=== PATIENT | male | born 1935 | race Caucasian/White ===

== ENCOUNTER → 2017-05-18 | Outpatient (CLI) | payer MEDICARE, BC ==
[2016-09-08 14:50] VITALS: BP 156/73
[~2017-05-18] MED LIST: AMLODIPINE10 MG PO; ASPIRIN E.C. 8181 MG PO; BYSTOLIC PO; CARDURA8 MG PO; COZAAR; COZAAR100 MG PO; DAILY MULTIPLE1 T18 PO; DOXAZOSIN MESYLA4 MG PO; FINASTERIDE5 M1 PO; FLEXERIL 1010 MG/TAB PO; HCTZ 25MG25 MG PO; OMEPRAZOLE D/R20 MG PO; RAPAFLO8 MG PO; SKELAXIN 800MG800 MG PO; ZANAFLEX4 M1 PO
== END ==
LOC: LAB 11:02
DX: K55.9 Vascular disorder of intestine, unspecified (principal)

== ENCOUNTER → 2017-05-23 | Outpatient (CLI) | payer MEDICARE, BC ==
[2016-09-08 14:50] VITALS: BP 156/73
== END ==
LOC: RAD 08:48
DX: K55.9 Vascular disorder of intestine, unspecified (principal); I73.9 Peripheral vascular disease, unspecified; N40.0 Benign prostatic hyperplasia without lower urinary tract symptoms
CPT/HCPCS: Q9967

== ENCOUNTER → 2017-07-25 | Outpatient (CLI) | payer MEDICARE, BC ==
[2016-09-08 14:50] VITALS: BP 156/73
[2017-07-26 08:33] LABS: BUN/CREATININE RATIO 14.9 (6.0-26.0); CALCIUM 9.5 mg/dL (8.4-10.2); HEMATOCRIT 38.4 % (42.0-52.0); HEMOGLOBIN 12.3 g/dL (13.5-18.0); MEAN PLATELET VOLUME 10.3 fl (7.4-10.4); POTASSIUM 3.9 mmol/L (3.6-5.0); RED BLOOD COUNT 3.73 M/mm3 (4.20-5.60); RED CELL DISTRIBUTION WIDTH 12.9 % (11.5-14.5); WHITE BLOOD COUNT 6.8 K/mm3 (4.8-10.8)
== END ==
LOC: LAB 10:40
PROVIDERS: Internal Medicine Interventional Cardiology
DX: I70.1 Atherosclerosis of renal artery (principal)

== ENCOUNTER 2017-11-10 12:24 | Emergency (ER) | payer MEDICARE, BC ==
[~2017-11-10] VITALS: Ht 182.9 cm; Wt 111.8 kg
[2017-11-10] MEDS ORDERED: LEVOXYL0.088 MG PO (12:42)
[2017-11-10] MEDS ORDERED: AMIODARONE200 MG PO (12:42)
[2017-11-10] MEDS ORDERED: MECLIZINE PO (12:43)
[2017-11-10 13:31] LABS: BUN/CREATININE RATIO 13.1 (6.0-26.0); HEMATOCRIT 37.1 % (42.0-52.0); HEMOGLOBIN 11.6 g/dL (13.5-18.0); MEAN CELL VOLUME 97 fl (78-100); MEAN CORPUSCULAR HEMOGLOBIN 30 pg (27-31); MEAN CORPUSCULAR HGB CONC 31 g/dL (33-37); MEAN PLATELET VOLUME 9.8 fl (7.4-10.4); PLATELET COUNT 239 K/mm3 (130-400); POTASSIUM 3.7 mmol/L (3.6-5.0); RED BLOOD COUNT 3.83 M/mm3 (4.20-5.60); RED CELL DISTRIBUTION WIDTH 13.8 % (11.5-14.5); WHITE BLOOD COUNT 12.4 K/mm3 (4.8-10.8)
[2017-11-10 13:41] LABS: LYMPHOCYTE 16 % (20-51); MONOCYTE 9 % (3-10); NEUTROPHILS 75 % (42-75)
[2017-11-10 14:02] LABS: PH-URINE 6.5 (5.0 - 8.0); URINE APPEARANCE CLEAR; URINE BILIRUBIN NEGATIVE (NEGATIVE); URINE BLOOD NEGATIVE (NEGATIVE); URINE COLOR YELLOW; URINE GLUCOSE NEGATIVE (NEGATIVE); URINE KETONE NEGATIVE (NEGATIVE); URINE NITRATE NEGATIVE (NEGATIVE); URINE PROTEIN(semi-quant) NEGATIVE (NEGATIVE); URINE UROBILINOGEN NORMAL (NORMAL)
[2017-11-10 14:03] LABS: URINE LEUKOCYTE ESTERASE TRACE (NEGATIVE); URINE WBC 0-1 /hpf (0-3)
[2017-11-10 14:30] VITALS: BP 178/90
== END 2017-11-10 14:30 | disposition home or self-care (01) ==
LOC: ED 12:24
PROVIDERS: Family Medicine
DX: R42 Dizziness and giddiness (principal); I25.10 Atherosclerotic heart disease of native coronary artery without angina pectoris; I73.9 Peripheral vascular disease, unspecified; I10 Essential (primary) hypertension; E78.5 Hyperlipidemia, unspecified; N40.1 Benign prostatic hyperplasia with lower urinary tract symptoms; N39.41 Urge incontinence; Z95.5 Presence of coronary angioplasty implant and graft

== ENCOUNTER → 2018-01-16 | Outpatient (CLI) | payer MEDICARE, BC ==
[~2018-01-16] MED LIST changes: +AMIODARONE200 MG PO; +LEVOXYL0.088 MG PO; +MECLIZINE PO
== END ==
LOC: RAD 09:00
DX: I65.23 Occlusion and stenosis of bilateral carotid arteries (principal)

== ENCOUNTER → 2018-02-20 | Outpatient (CLI) | payer MEDICARE, BC | LOC: RAD 12:45 | DX: K40.90 Unilateral inguinal hernia, without obstruction or gangrene, not specified as recurrent (principal) ==

== ENCOUNTER → 2018-05-24 | Outpatient (CLI) | payer MEDICARE, BC ==
[2018-05-24 11:01] LABS: POTASSIUM 3.7 mmol/L (3.6-5.0)
== END ==
LOC: LAB 09:49
PROVIDERS: Internal Medicine Interventional Cardiology
DX: R60.0 Localized edema (principal)

== ENCOUNTER 2018-08-05 11:42 | Inpatient (IN) | payer MEDICARE, BC ==
[~2018-08-05] VITALS: Ht 180.3 cm; Wt 111.9 kg
[~2018-08-05 11:42] MED LIST changes: +DILT-XR120 MG PO; +TRAMADOL 50 MG TAB PO; +XARELTO20 MG PO
[2018-08-05 15:47] VITALS: BP 135/82
[2018-08-05 18:51] VITALS: BP 118/77
--- NOTE | 2018-08-05 19:30 | NUR ---
Bedside shift report received from Kelsy CORNELIUS. Resting in bed. A/Ox 4. Denies pain at present time. Cast intact to LLE. CMS intact. Assessment completed. States has not had BM in 3 days. States he has a BM every 2 days or so. Does not feel constipated. Abdomen soft, ND. BS hypoactive. Gabrielle CONROYN in to see patient. Order received for Miralax.
--- NOTE | 2018-08-06 01:13 | NUR ---
Incontinent of urine. Total bed change. Having pain in neck area 05/03. Denies L Leg pain. Tramadol and flexiril given. Bed alarm on. Call light in reach.
--- NOTE | 2018-08-06 04:10 | NUR ---
Awakens, trying to crawl OOB. Needs to have BM. Assisted on bedpan. Confused. Male SPAGHETTI MACHINE OPERATOR in room to assist as patient emanuel not "want to poop in front of you girls".
[2018-08-06 06:27] VITALS: BP 142/97
--- NOTE | 2018-08-06 07:26 | NUR ---
Report to Angella CORNELIUS.
--- NOTE | 2018-08-06 07:56 | NUR ---
Pt suffering from slight confusion this AM. Is alert, oriented to self but asks several times where he is and where his is. Upon this RN entering room, pt noted to be lying in bed naked. Assist pt to sit on side of bed, apply brief. Instruct on NWB LLE, pt acknowledges understanding. Assist pt to stand with walker and pivot into recliner. Pt unable to follow instruction and uses toe touch during pivot. Placed gown. Pt complains of pain to R neck, agrees to try kpad. Denies pain to LLE. Toes warm, cap refill <3 seconds. Legs elevated on recliner footstool. Call light within reach, chair alarm set.
[2018-08-06 18:13] VITALS: BP 163/70
--- NOTE | 2018-08-06 21:30 | NUR ---
patient assisted into bed, miguelito cares performed, overnight pulse oximeter placed on patients left pointer finger and turned on, patient educated on what the study was, what it is for and what is being monitored, patient verbalizes understanding of instructions, agrees to keep monitor on his finger all night, call light within reach, side rails up x 2, bed alarm activated, patient denies any further needs at this time
[2018-08-07 06:03] VITALS: BP 177/103
[2018-08-07 18:57] VITALS: BP 115/80
[2018-08-08 06:20] VITALS: BP 148/89
--- NOTE | 2018-08-08 07:15 | NUR ---
bedside shift report given to Samantha at this time and care turned over. patient resting quietly in bed, call light within reach, bed alarm activated, side rails up x 2, patient denies any needs/complaints at this time
--- NOTE | 2018-08-08 07:40 | NUR ---
PATIENT SITTING UP IN CHAIR FOR BREAKFAST. SHIFT ASSESSMENT COMPLETED AT THIS TIME. PATIENT A/O X4. RATING PAIN 8/10 WITH A HEADACHE. LUNGS CTA, DENIES COUGH OR SHORTNESS OF BREATH. SPLINT TO LEFT LOWER LEG CDI, COLOR GOOD, CAP REFILL BRISK, AND PATIENT IS ABLE TO WIGGLE TOES. PATIENT WITHOUT FURTHER NEEDS, WILL CONTINUE TO MONITOR. CALL LIGHT WITHIN REACH AND CHAIR ALARM ON.
[2018-08-08 18:22] VITALS: BP 131/80
--- NOTE | 2018-08-08 19:04 | NUR ---
Bedside shift report received from Kelsy Gutierrez RN
--- NOTE | 2018-08-08 22:00 | NUR ---
Resting in bed, bed alarm set and call light with in reach of pt. Eyes closed and even respirations.
--- NOTE | 2018-08-09 05:51 | NUR ---
Awake and a/o x 3. C/o's of right sided neck pain. Rates pain 8 out 10. Given ultram 50mg 2 PO. Up to bedside commode with 2 person assist. None weight bearing left leg. Pivot transfer without difficulty.
[2018-08-09 06:23] VITALS: BP 160/97
--- NOTE | 2018-08-09 07:00 | NUR ---
Bedside shift report given to Angella Arzola RN
--- NOTE | 2018-08-09 09:29 | NUR ---
Pt A&O, sitting up in recliner, eating breakfast. Reports pain 3/10 to neck and LLE. Dressing to LLE intact.
--- NOTE | 2018-08-09 16:51 | NUR ---
Spoke to pt, his , and his son Clark about activities, pt states he has slowed down a lot and there are many things he no longer does, he merely likes to sit and look out the window and visit w/ family and friends or watch TV. He would like a visit from the [employer], who is called and notified and will be up this afternoon. Pt has a supportive family and all are in agreement w/ HH services when he is discharged and are given a choice list to research OPTICAL LABORATORY TECHNICIAN's.
[2018-08-09 18:10] VITALS: BP 118/74
--- NOTE | 2018-08-09 19:45 | NUR ---
Report received from Angella CORNELIUS. Patient up in recliner with legs elevated. A/O x4. Denies pain. LLE wrapped in linette wrap. CDI. CMS intact. Assessment completed. Chair alarm on. Call light in reach.
--- NOTE | 2018-08-10 00:39 | NUR ---
Rests with eyes closed. No signs of pain or distress. Bed alarm on. Call light in reach.
--- NOTE | 2018-08-10 05:59 | NUR ---
Awake for V/S and toileting. Up to BSC with max 2 assist. Incontinent of urine. Pericares provided. Back to bed, denies pain but states will take a pain pill anyway. Tramadol 50 MG and AM Synthroid given.
[2018-08-10 06:21] VITALS: BP 145/95
[2018-08-10 18:21] VITALS: BP 119/73
--- NOTE | 2018-08-10 20:10 | NUR ---
Report received from Saskia CORNELIUS. Up in recliner with legs elevated. A/O x4. Denies pain. Cast intact to LLE. Assessment completed. Takes Tramadol 1 tab for pain prevention. Ready to go to bed. BOX PRESS OPERATOR's in room to assist.
--- NOTE | 2018-08-10 20:28 | NUR ---
TITLE INSURANCE EXAMINER reports patient voiding small amounts and frequency. No burning or pain with urination. Incontinent at times. Family has stated to other nurses this is a long time issue. TITLE INSURANCE EXAMINER performed bladder scan and noted to have 660 ML in bladder. Last UA at [facility] on 08/03, showed no infection. Dr. Nunez notified.
--- NOTE | 2018-08-10 21:22 | NUR ---
New order received fro Clean catch UA and Flomax daily. THREAD SEPARATOR's notified of need for UA.
--- NOTE | 2018-08-11 05:51 | NUR ---
Awake in bed. Slept well. Scheducled AM medication taken. Clean catch UA obtained and taken to lab by DI.
[2018-08-11 06:11] VITALS: BP 141/89
--- NOTE | 2018-08-11 07:18 | NUR ---
Report to Saskia CORNELIUS.
--- NOTE | 2018-08-11 08:15 | NUR ---
Patient alert and oriented. Sitting up in the chair, naked, with gown covering lower half of his body. Patient is holding urinal in place. States "I have a problem." Patient voids small amounts of urine frequently. Points to urinal and states "I leave it here or I get all wet." Patient wants to keep urinal in place so he can catch the urine instead of urinating on himself constantly. Patient denies having this problem prior to admission. States "when I start over here I got worse, and worse, and worse." First dose of flomax administered and education provided. Patient denies bladder pain, or pain or burning with urination. UA was collected this morning. Patient denies needs or questions at this time. Fall precautions in place.
[2018-08-11 08:49] LABS: PH-URINE 7.5 (5.0 - 8.0); URINE APPEARANCE CLEAR; URINE BILIRUBIN NEGATIVE (NEGATIVE); URINE BLOOD NEGATIVE (NEGATIVE); URINE COLOR YELLOW; URINE GLUCOSE NEGATIVE (NEGATIVE); URINE KETONE NEGATIVE (NEGATIVE); URINE LEUKOCYTE ESTERASE NEGATIVE (NEGATIVE); URINE NITRATE NEGATIVE (NEGATIVE); URINE PROTEIN(semi-quant) NEGATIVE (NEGATIVE); URINE UROBILINOGEN NORMAL (NORMAL); URINE WBC 0-1 /hpf (0-3)
--- NOTE | 2018-08-11 08:50 | NUR ---
Dr. Nunez notified of patient's urinary complaints. New orders for bladder scan.
--- NOTE | 2018-08-11 16:20 | NUR ---
Patient resting in bed. Denies pain. Reports improvement in urinary symptoms. Splint and linette wrap to left lower extremity. CMS intact. Denies needs. Family at bedside. Fall precautions in place.
[2018-08-11 18:29] VITALS: BP 117/74
--- NOTE | 2018-08-12 03:09 | NUR ---
Resting quietly. No signs of pain or distress. Bed alarm on. Call light in reach.
--- NOTE | 2018-08-12 05:44 | NUR ---
Scheduled AM medication taken. Denies pain. Incontinent of B&B. Hayley/rectal cares given. Barrier cream applied to reddened/sore butt crack and right groin.
[2018-08-12 06:27] VITALS: BP 121/75
[2018-08-12 06:55] LABS: HEMATOCRIT 38.1 % (42.0-52.0); HEMOGLOBIN 11.9 g/dL (13.5-18.0); MEAN CELL VOLUME 95 fl (78-100); MEAN CORPUSCULAR HEMOGLOBIN 30 pg (27-31); MEAN CORPUSCULAR HGB CONC 31 g/dL (33-37); MEAN PLATELET VOLUME 9.3 fl (7.4-10.4); PLATELET COUNT 359 K/mm3 (130-400); RED BLOOD COUNT 4.01 M/mm3 (4.20-5.60); RED CELL DISTRIBUTION WIDTH 14.9 % (11.5-14.5); WHITE BLOOD COUNT 10.8 K/mm3 (4.8-10.8)
--- NOTE | 2018-08-12 07:03 | NUR ---
Report to Saskia CORNELIUS.
[2018-08-12 07:47] LABS: CALCIUM 9.6 mg/dL (8.4-10.2); POTASSIUM 4.2 mmol/L (3.6-5.0)
[2018-08-12 08:02] LABS: LYMPHOCYTE 17 % (20-51); MONOCYTE 12 % (3-10); NEUTROPHILS 66 % (42-75)
--- NOTE | 2018-08-12 12:05 | NUR ---
Danny Vargas APRN at bedside.
[2018-08-12 18:10] VITALS: BP 150/86
--- NOTE | 2018-08-12 19:10 | NUR ---
Report received from Saskia CORNELIUS. Patient rests supine in bed with CREW DISPATCHER in room providing cares. Transfered by CREW DISPATCHER from recliner to bed using slide board. CREW DISPATCHER reports that patient is doing "really good" with use of slide board. Currently denies pain to neck or LLE. Cast/Splint CDI to LLE. CMS intact. Assessment completed. R groin and butt crack red, no open areas. Barrier cream applied. Remains incontinent of bladder. Uses urinal and keeps placed in position.
--- NOTE | 2018-08-12 19:30 | NUR ---
Report received from Saskia CORNELIUS. Patient up sitting up in bed. Working on computer. A/O x4. Denies pain. Assessment completed. Voids clear yellow urine in urinal. Protein shake provided. Denies wants or needs.
--- NOTE | 2018-08-12 22:50 | NUR ---
Incontinent of urine. Total bed change. Hayley cares provided. Denies pain. States "I would take a Tylenol though". Tylenol 650 MG given. Repositioned for comfort. Bed alarm on. Call light in reach.
--- NOTE | 2018-08-13 04:30 | NUR ---
Restless and unable to sleep most of the night. Denies pain. Tylenol given PO for pain prevention. Sleep facilitation. Has had 2 soft formed BM's.
[2018-08-13 06:30] VITALS: BP 161/88
--- NOTE | 2018-08-13 06:30 | NUR ---
Complaining of a "sour tummy" this AM. Also noted to have some clear nasal drainage and a dry cough. Will report to oncoming shift. 7 up provided for stomach.
--- NOTE | 2018-08-13 07:13 | NUR ---
Report to Angella CORNELIUS.
--- NOTE | 2018-08-13 07:30 | NUR ---
During bedside shift report, there are noted to be a large pile of kleenex on pt bedside table. Upon inspection, they all have moderate amounts red/brown mucous in them. Pt reports that he has been coughing all NOC and has not slept well. Continues to c/o "a sour stomach." Has not had any food and only clear liquids through the NOC. Informed Danny Young APRN of findings, orders obtained.
[2018-08-13 08:03] LABS: HEMATOCRIT 35.9 % (42.0-52.0); HEMOGLOBIN 11.7 g/dL (13.5-18.0); MEAN CELL VOLUME 96 fl (78-100); MEAN CORPUSCULAR HEMOGLOBIN 31 pg (27-31); MEAN CORPUSCULAR HGB CONC 33 g/dL (33-37); MEAN PLATELET VOLUME 9.2 fl (7.4-10.4); PLATELET COUNT 351 K/mm3 (130-400); RED BLOOD COUNT 3.76 M/mm3 (4.20-5.60); RED CELL DISTRIBUTION WIDTH 14.9 % (11.5-14.5); WHITE BLOOD COUNT 11.8 K/mm3 (4.8-10.8)
[2018-08-13 08:04] LABS: GASTROCCULT POSITIVE
[2018-08-13 08:18] LABS: LYMPHOCYTE 6 % (20-51); MONOCYTE 8 % (3-10); NEUTROPHILS 85 % (42-75)
[2018-08-13 08:20] LABS: ALBUMIN 3.8 g/dL (3.5-5.0); CALCIUM 8.8 mg/dL (8.4-10.2); POTASSIUM 3.5 mmol/L (3.6-5.0); TOTAL PROTEIN 6.7 g/dL (6.3-8.2)
[2018-08-13 10:18] VITALS: BP 136/81
[2018-08-13 13:53] VITALS: BP 137/91
[2018-08-13 13:54] LABS: HEMATOCRIT 33.8 % (42.0-52.0); HEMOGLOBIN 10.8 g/dL (13.5-18.0)
[2018-08-13 14:10] VITALS: BP 137/91
--- NOTE | 2018-08-13 17:10 | NUR ---
Pt to procedure area via WC, for EGD.
--- NOTE | 2018-08-13 18:32 | NUR ---
EGD complete. Per Dr. Mcdonald, pt has reflux esophagitis. Instructs to continue PPI. May resume oral intake and anticoagulant without restriction.
--- NOTE | 2018-08-13 19:05 | NUR ---
Bedside shift report received from Angella Arzola RN. and son at side. Pt denies having chest pain, SOB or difficutly swallowing. Bed alarm set and call light with in reach of pt.
--- NOTE | 2018-08-13 19:06 | NUR ---
IV fluids of NS infusing at 125mls/hr. Protonix infusing via piggy back per pump at 25mls/hr.
[2018-08-13 19:47] VITALS: BP 102/66
[2018-08-13 20:13] LABS: HEMATOCRIT 33.9 % (42.0-52.0); HEMOGLOBIN 10.8 g/dL (13.5-18.0)
--- NOTE | 2018-08-13 20:20 | NUR ---
[id number], IV pump showing occlusion, IV site flushed with normal saline without difficulty, no redness or swelling. IV site none tender to touch. IV fluids and protonix IV infused via gravity. IV rescured. IV pump continued to show occlusion. 2009 New IV catheter started in right hand using a 22 gauge IV catheter. IV fluids of NS restarted and continue to infuse at 125mls/hr. Protonix IV restarted and infusing at 25ml/hr.
--- NOTE | 2018-08-13 22:25 | NUR ---
2214 Pt c/o of feeling wet. IV noted to be out of right hand. No active bleeding noted. Pt cleaned up and fresh bed sheets applied. Jo Young APRN notified. Order received not to restart IV. IV fluids DC, protonix IV DC 2221 Pt has been figety on and off this evening. Offered pt norco. Pt declined. Pt requested tylenol 650mg PO. Given at this time.
--- NOTE | 2018-08-14 05:38 | NUR ---
Q hourly checks done. Bed alarm set and call light with in reach of patient. Pt has been resting in bed with eyes closed and even respirations. Currently awake and a/o x 3. Pt c/o's of "just hurting all over." Offered norco for pain. Pt stated "I'll take it later."
[2018-08-14 06:24] LABS: HEMATOCRIT 33.8 % (42.0-52.0); HEMOGLOBIN 10.7 g/dL (13.5-18.0); MEAN CELL VOLUME 96 fl (78-100); MEAN CORPUSCULAR HEMOGLOBIN 30 pg (27-31); MEAN CORPUSCULAR HGB CONC 32 g/dL (33-37); MEAN PLATELET VOLUME 9.4 fl (7.4-10.4); PLATELET COUNT 333 K/mm3 (130-400); RED BLOOD COUNT 3.52 M/mm3 (4.20-5.60); RED CELL DISTRIBUTION WIDTH 15.4 % (11.5-14.5)
[2018-08-14 06:39] VITALS: BP 109/70
[2018-08-14 06:45] LABS: LYMPHOCYTE 17 % (20-51); MONOCYTE 15 % (3-10); NEUTROPHILS 67 % (42-75)
[2018-08-14 07:00] LABS: ALBUMIN 3.2 g/dL (3.5-5.0); CALCIUM 8.6 mg/dL (8.4-10.2); POTASSIUM 3.6 mmol/L (3.6-5.0); TOTAL BILIRUBIN 0.8 mg/dL (0.2-1.3)
--- NOTE | 2018-08-14 07:40 | NUR ---
REPORT RECEIVED FROM ADRYAN SPENCE
--- NOTE | 2018-08-14 07:40 | NUR ---
Bedside shift report given to Norma Jackman RN
--- NOTE | 2018-08-14 08:30 | NUR ---
PATIENT'S SHIFT ASSESSMENT COMPLETE. PATIENT ALERT AND ORIENTED X4. DENIES ANY PAIN OR DISCOMFORTS AT THIS TIME. SPLINT SECURED WITH BREN WRAP TO LEFT LOWER EXT. TOES TO LEFT LOWER EXT PINK WITH GOOD CAP REFILL AND SENSATION. DENIES SHORTNESS OF BREATH OR DIFFICULTIES BREATHING. REPORTS NO LONGER COUGHING UP BLOOD. DENIES ANY NEEDS FROM THE NURSE AT THIS TIME.CALL LIGHT WITHIN REACH. CHAIR ALARM ON.
[2018-08-14 09:20] VITALS: BP 118/70
--- NOTE | 2018-08-14 10:25 | NUR ---
THIS NURSE IN ROOM TO GIVE PATIENT XARELTO. PATIENT SWALLOWING PILLS WITH WATER. BEGINS COUGHING WHILE SWALLOWING PILLS. EYES WATERING. COUGHS FOR APPROXIMATELY 20- 30 SECONDS. IS ABLE TO CLEAR THROAT. STATES "ONE OF THE PILLS JUST WENT DOWN WRONG" BUT WAS ABLE TO CLEAR PILL. REPORTS THAT HE HASN'T BEEN HAVING ANY ISSUES WITH COUGHING OR CHOKING WITH MEALS OR WHILE TAKING PILLS STATES "SOMETIMES IT'S JUST SOMETHING THAT HAPPENS" DENIES ANY ISSUES WHILE EATING BREAKFAST DID NOT HAVE DIFFICULTIES WITH SWALLOWING SCHEDULED MORNING MEDICATIONS WHEN THIS NURSE WAS IN ROOM. PATIENT'S IN ROOM. CALL LIGHT WITHIN REACH. CHAIR ALARM ON.
[2018-08-14 18:05] VITALS: BP 132/85
--- NOTE | 2018-08-14 19:15 | NUR ---
report given to ras zapata
--- NOTE | 2018-08-14 19:50 | NUR ---
Resting in recliner, chair alarm set and call light with in reach of pt. Pt resting with eyes closed and even respirations. Opens eyes when spoken too. Denies having any pain at this time. Denies need for pain medication.
--- NOTE | 2018-08-14 19:57 | NUR ---
Denied having any neck pain or right lower posterior leg pain. Chair alarm set.
--- NOTE | 2018-08-14 21:45 | NUR ---
2143 C/o of right lower posterior leg pain. Rated pain 5-6 out 10. Request tylenol. 650mg of Tylenol given PO. Denied having any other needs. Offered snack, pt declined.
--- NOTE | 2018-08-15 05:52 | NUR ---
Q hourly checks done. Bed alarm set and call light with in reach of pt. Has been resting in bed with eyes closed. Opens eyes when spoken too. Denies having any needs, concerns or pain.
[2018-08-15 06:10] VITALS: BP 139/91
[2018-08-15 07:16] LABS: HEMATOCRIT 34.9 % (42.0-52.0); HEMOGLOBIN 10.8 g/dL (13.5-18.0); MEAN CELL VOLUME 96 fl (78-100); MEAN CORPUSCULAR HEMOGLOBIN 30 pg (27-31); MEAN CORPUSCULAR HGB CONC 31 g/dL (33-37); MEAN PLATELET VOLUME 9.5 fl (7.4-10.4); PLATELET COUNT 342 K/mm3 (130-400); RED BLOOD COUNT 3.63 M/mm3 (4.20-5.60); RED CELL DISTRIBUTION WIDTH 15.3 % (11.5-14.5); WHITE BLOOD COUNT 7.5 K/mm3 (4.8-10.8)
--- NOTE | 2018-08-15 07:33 | NUR ---
REPORT RECEIVED FROM ADRYAN SPENCE
[2018-08-15 07:43] LABS: LYMPHOCYTE 22 % (20-51); MONOCYTE 12 % (3-10); NEUTROPHILS 60 % (42-75)
[2018-08-15 19:18] VITALS: BP 105/56
--- NOTE | 2018-08-15 20:10 | NUR ---
Assessment complete. Patient resting in bed watching tv. Denies pain at this time. Bed in lowest position, bed alarm on and active. Personal belongings and call light within reach. Will cont to monitor
--- NOTE | 2018-08-16 00:22 | NUR ---
Patient sleeping in bed. No s/s of discomfort at this time. LLE cont to have cap refill of <3 seconds. Will cont to monitor.
--- NOTE | 2018-08-16 05:05 | NUR ---
Patient sleeping at this time. No s/s of discomfort noted. LLE cap refill remains <3 seconds. Bed in lowest position, bed alarm on and active. Call light and personal belongings remain within reach. Will cont to monitor.
[2018-08-16 06:46] VITALS: BP 138/92
--- NOTE | 2018-08-16 07:08 | NUR ---
PATIENT AWAKE AND TRYING TO USE URINAL DURING BEDSIDE REPORT. CHASSIS ENGINEER'S IN ROOM TO ASSIST. PATIENT SLEPT WELL LAST NIGHT WITH NEEDING INCONTINENT CHANGES A COUPLE OF TIMES. NO NEW ISSUES NOTED PER REPORT; PATIENT DENIES ANY QUESTIONS AT THIS TIME.
--- NOTE | 2018-08-16 12:30 | NUR ---
PATIENT IN ROOM WITH FAMILY SITTING IN RECLINER WITH LEGS ELEVATED. PATIENT REPORTS ACHING IN RIGHT CALF MUSCLE; BELIEVES ITS FROM BEING TOTAL WEIGHT BEARING ON THAT LEG. APPLIED BENGAY CREAM TO AREA AND RUBBED THE MUSCLE FOR A FEW MINUTES. NO NOTABLE REDNESS, SWELLING, OR BRUISING TO AREA.
[2018-08-16 18:04] VITALS: BP 92/60
--- NOTE | 2018-08-16 18:19 | NUR ---
PATIENT RESTING IN ROOM QUIETLY. FAMILY LEFT ABOUT A HALF HOUR AGO. PATIENT HAD A GOOD DAY WITH THERAPY AND TRANSFERRING TO THE VAN. PATIENT CONTINUES TO COMPLAIN ABOUT NEEDING OINTMENT ON HIS BUTT WITH NO IRRITATION NOTED. ENCOURAGED PATIENT TO SHIFT WEIGHT OR LAY IN BED EARLIER AND HE DENIES THAT IT IS FROM POSITION BUT RATHER IT IS DRY SKIN. WILL CONTINUE TO MONITOR SKIN FOR BREAKDOWN. PATIENT ACKNOWLEDGES HE IS GOING TO SEE ORTHO DOC NEXT TUES AND PLAN IS TO GET A BOOT. I EXPLAINED THE ORTHO BOOT AND SHOWED HIM AND FAMILY A PICTURE OF A COUPLE OF DIFFERENT BOOTS. PATIENT DENIES NEEDS AT THIS TIME. WATCHING TV
--- NOTE | 2018-08-16 20:43 | NUR ---
Bedside shift report received from Nae CORNELIUS. Rests supine in bed. A/O x4. Denies pain. Assisted to bed by DENITRATOR, 1 assist using slide board. Assessment completed. Reports occasional NPC. Splint/linette wrap CDI to LLE. Remains NWB to LLE. Denies wants or needs. Bed alarm on. Call light in reach.
--- NOTE | 2018-08-17 00:20 | NUR ---
Rings call light for assist with urinal. Denies pain. DOMESTIC VIOLENCE COUNSELOR in to assist. Bed alarm on. Call light in reach.
--- NOTE | 2018-08-17 02:24 | NUR ---
Resting quietly with eyes closed. No signs of pain or distress. Bed alarm on. Call light in reach.
[2018-08-17 06:23] VITALS: BP 151/95
--- NOTE | 2018-08-17 07:04 | NUR ---
Report to Angella CORNELIUS.
--- NOTE | 2018-08-17 08:30 | NUR ---
Pt sitting up in recliner. Denies pain. Is eating breakfast. Notice that pt does not yet have dentures in. They are retrieved from BR, pt applies adhesive and puts them in mouth. Pt c/o dry, cracked hands, requests lotion. Dressing to LLE remains intact, toes warm with brisk cap refill.
[2018-08-17 18:31] VITALS: BP 105/69
--- NOTE | 2018-08-17 20:15 | NUR ---
Report received from Angella CORNELIUS. Up in chair with legs elevated. Chair alarm on. A/O x4. Denies pain. Splint CDI to LLE. Remains NWB with slideboard transfer. Assessment completed.
[2018-08-18 06:20] VITALS: BP 139/99
--- NOTE | 2018-08-18 06:24 | NUR ---
Rested well all night. Voiding more in urinal. Less incontinence per CIRCULAR SAW OPERATOR report. Denied pain all shift.
--- NOTE | 2018-08-18 08:30 | NUR ---
Pt up to recliner eating breakfast, denies pain. Refuses miralax this AM. Pt transfers well using slideboard for NWB LLE. Pt reports being hopeful that at appt on Sunday, he will get cleared to begin weightbearing and states that he would really like to return to home. Discuss with pt that even once cleared for WB, he will still need add'l PT/OT to build up tolerance and strength. Pt is disappointed with this information.
[2018-08-18 18:41] VITALS: BP 89/61
--- NOTE | 2018-08-18 20:10 | NUR ---
Report received from Angella CORNELIUS. Patient resting supine in bed with eyes closed. No signs of pain or distress. Opens eyes when nurse enters room. Oriented x4. Denies pain. Assessment completed. Splint/Jose wrap CDI to LLE. Elevated on pillows. Denies wants or needs. Bed alarm on. Call light in reach.
--- NOTE | 2018-08-19 02:21 | NUR ---
Calls to have urinal emptied PRN. Denies pain. LLE elevated on pillows. Bed alarm on. Call light in reach.
[2018-08-19 06:22] VITALS: BP 133/94
--- NOTE | 2018-08-19 08:19 | NUR ---
Bedside shift report to Jessica RN.
--- NOTE | 2018-08-19 08:20 | NUR ---
PT RESTING IN BED DURING SHIFT REPORT. REPORTS A GOOD NIGHT. VOIDS CLEAR YELLOW URINE PER URINAL. DENIES NEEDS AT THIS TIME. ALARM ON AND CALL LIGHT IN REACH
[2018-08-19 09:09] LABS: EOS # 0.3 (0.04-0.40); EOS % 3.4 % (0.0-4.0); HEMATOCRIT 38.8 % (42.0-52.0); LYMPH# 1.4 (1.50-4.00); MEAN CELL VOLUME 97 fl (78-100); MEAN CORPUSCULAR HEMOGLOBIN 30 pg (27-31); MEAN CORPUSCULAR HGB CONC 31 g/dL (33-37); MEAN PLATELET VOLUME 9.2 fl (7.4-10.4); MONO # 0.8 (0.20-0.80); NEU # 5.2 (1.40-6.50); PLATELET COUNT 360 K/mm3 (130-400); RED BLOOD COUNT 4.02 M/mm3 (4.20-5.60); RED CELL DISTRIBUTION WIDTH 15.3 % (11.5-14.5); WHITE BLOOD COUNT 7.7 K/mm3 (4.8-10.8)
[2018-08-19 09:29] LABS: ALBUMIN 3.6 g/dL (3.5-5.0); CALCIUM 8.9 mg/dL (8.4-10.2); POTASSIUM 3.7 mmol/L (3.6-5.0); TOTAL BILIRUBIN 0.9 mg/dL (0.2-1.3); TOTAL PROTEIN 6.4 g/dL (6.3-8.2)
--- NOTE | 2018-08-19 10:45 | NUR ---
Sree MYERS NOTIFIED OF PATIENTS COMPLAINTS OF BEING DIZZY
--- NOTE | 2018-08-19 12:00 | NUR ---
PT UP IN CHAIR DOING WELL. DENIES PAIN. FAMILY AT BEDSIDE
[2018-08-19 18:09] VITALS: BP 84/61; BP 89/64
--- NOTE | 2018-08-19 20:39 | NUR ---
Report received from Saskia CORNELIUS. Patient up in W/C. A/O x4. Denies pain. Refuses need for topical analgesic. Assessment completed. Dressing splint CDI to LLE. URBAN DESIGN CONSULTANT's in room to assist with HS cares and transfer to bed.
[2018-08-20 06:35] VITALS: BP 140/87
--- NOTE | 2018-08-20 07:20 | NUR ---
BEDSIDE REPORT RECEIVED FROM KARLA MCGARRY LPN
--- NOTE | 2018-08-20 07:23 | NUR ---
Report to Norma CORNELIUS.
--- NOTE | 2018-08-20 08:30 | NUR ---
PATIENT SITTING UP IN RECLINER. SHIFT ASSESSMENT COMPLETE. PATIENT ALERT AND ORIENTED. DENIES ANY PAIN OR DISCOMFORTS AT THIS TIME. DENIES SHORTNESS OF BREATH OR DIFFICULTIES BREATHING. SPLINT IN PLACE TO LEFT LOWER EXT. AREA THAT IS ABLE TO BE ASSESSED AROUND SPLINT CMS INTACT. PATIENT REMAINS NON WEIGHT BEARING TO LEFT LOWER EXT WITH SLIDE BOARD TRANSFERS ONLY. DENIES ANY NEEDS FROM THE NURSE AT THIS TIME.
--- NOTE | 2018-08-20 09:00 | NUR ---
Sree MYRES APRN REPORTS SHE HAS A PHONE CALL INTO 'S OFFICE TO SEE IF PATIENT CAN BE SEEN AT [facility] BY ON AUGUST 28 AND CANCEL APPT TODAY IN [place]. ALSO ASKED IF Sree MYERS APRN CAN REMOVE SPLINT AND TAKE OUT SHON. AWAITING REPLY.
--- NOTE | 2018-08-20 11:10 | NUR ---
CALLED [facility] OFFICE TO FOLLOW UP ON MESSAGE PROVIDER LEFT YESTERDAY. SPOKE WITH 'S NURSE. PER NURSE PATIENT'S APPT THIS AFTERNOON CANCELED. OKAY WITH PATIENT CARE BEING TRANSFERED TO . PATIENT HAS APPOINTMENT ON AUGUST 28 AT 1010 AT [facility]. NURSE REPORTS SHON NEED TO COME OUT TODAY,REPORTED SHE IS STILL AWAITING REPLY FROM ON ORDERS FOR Sree MYERS APRN TO REMOVE SPLINT TODAY AND TAKE OUT SUTURES. THIS NURSE REQUESTED ORDERS BE CALLED TO US WHEN AVAILABLE AND COPY OF WRITTEN ORDER OF INSTRUCTIONS BE FAXED TO [phone]. NURSE REPORTS NEED FOR FOLLOW UP XRAY WILL ALSO BE ADDRESSED IN ORDERS.
--- NOTE | 2018-08-20 15:05 | NUR ---
Sree MYERS APRN WITH PATIENT'S ROOM REMOVING SPLINT FROM LEFT LOWER EXT. SPLINT REMOVED. PATIENT HAS INCISION TO LEFT LATERAL ANKLE. SHON IN PLACE. INCISION EDGES WELL APPROXIMATED. SMALL AMOUNT OF DRIED SANGUINEOUS DRAINAGE PRESENT ON OLD DRESSING. SOME DARK PURPLE BRUISING THROUGHOUT LEFT ANKLE NOTED MOSTLY AROUND LOWER BORDER OF INCISION AND BASE OF FOOT. NO REDNESS OR SIGNS OF INFECTION NOTED AT THIS TIME. SHON REMOVED BY Sree MYERS APRN AT THIS TIME. 21 SHON REMOVED. INCISION EDGES WELL APPROXIMATED. SCANT AMOUNT OF SEROUS DRAINAGE COMING FROM INCISION AFTER SHON REMOVED. CLEANSED INCISION WITH CHLORAPREP. SKIN PREP APPLIED TO SURROUNDING SKIN. COVERED WITH AIRSTRIP. PHYSICAL THERAPY IN ROOM GETTING CAM BOOT FOR PATIENT. PER Sree MYERS APRN PATIENT IS TO WEAR CAM BOOT AT ALL TIMES. MAY REMOVE BOOT FOR SHOWER BUT ONLY IF PATIENT IS UNDER CLOSE SUPERVISION AND MAKE SURE PATIENT HAS LEG ELEVATED WITH WEIGHT OFF LEG AND DOES NOT PUT ANY WEIGHT ON LEFT LOWER EXT WHAT SO EVER.
[2018-08-20 19:13] VITALS: BP 82/72
--- NOTE | 2018-08-20 19:44 | NUR ---
BEDSIDE REPORT GIVEN TO ADRYAN ZHANG
[2018-08-21 06:06] VITALS: BP 124/89
--- NOTE | 2018-08-21 06:27 | NUR ---
Pt here with a left ankle fracture and for PT. Pt is coppertive with cares. Pt is incontient of urine x 2 this shift. Pt denies pain when asked. Cam Boot worn on left leg all night.
--- NOTE | 2018-08-21 07:20 | NUR ---
BEDSIDE REPORT RECEIVED FROM ADRYAN ZHANG
[2018-08-21 18:47] VITALS: BP 87/62
--- NOTE | 2018-08-21 20:11 | NUR ---
PATIENT'S DRESSING TO LEFT ANKLE CHANGED AT THIS TIME. OLD DRESSING HAS SMALL AMOUT OF SEROUS DRAINAGE PRESENT ON DRESSING. INCISION EDGES WELL APRPOXIMATED. DARK PUPRLE BRUISING THROUGHT FOOT. +1 EDEMA TO AREA. PATIENT REPORTS THAT "LEG HAS BEEN MORE SORE SINCE SWITHING TO BOOT" INICISION CLEANSED WITH STERILE SALINE. SKIN PREP APPLIED AND COVERED WITH AIR STRIP. PROTRUDING BONE TO MEDIAL ASPECT OF LEFT FOOT SLIGHTLY REDDENED. BLANCHABLE AND INTACT. THIN MEPILEX FOAM LITE APPLIED TO RED AREA FOR PROTECTION. PATIENT HAS APPROXIMATELY 0.5 CM AROUND BROWN SCAB TO LEFT CALF. MEPILEX FOAM APPLIED TO AREA. CAM BOOT REAPPLIED. PATIENT'S LEFT LOWER EXT ELEVATED ON PILLOWS. FAMILY IN ROOM. CALL LIGHT WITHIN REACH. BED ALARM ON.
[2018-08-22 06:09] VITALS: BP 142/88
--- NOTE | 2018-08-22 08:30 | NUR ---
Pt up to recliner. Denies pain. Had hair cut this AM by local beautician. Removed CAM walker, removed and applied new airstrip dressing cut to size and placed on lateral side of ankle. Incision noted to be healing, no open areas, no drainage. Pt denies boot is rubbing or hurting. Mepilex to scab on medial gutierrez and padding to medial ankle bone remain intact. Pedal pulses palpable and cap refill <3 seconds. Replace CAM walker to LLE.
[2018-08-22 18:34] VITALS: BP 102/67
--- NOTE | 2018-08-23 05:18 | NUR ---
Has been resting well all night with CAM boot in place. Remains NWB to LLE. Has Tylenol at HS per his request for pain prevention. Has denied actual pain this shift. Rests in bed with bed alarm on. Call light in reach.
[2018-08-23 06:30] VITALS: BP 145/95
--- NOTE | 2018-08-23 07:08 | NUR ---
Report to Angella CORNELIUS.
[2018-08-23 18:48] VITALS: BP 91/60
--- NOTE | 2018-08-23 19:30 | NUR ---
Bedside shift report received from Angella Arzola RN. Resting in recliner awake and a/o. Denies having any pain, needs or concerns.
--- NOTE | 2018-08-23 22:00 | NUR ---
Transfered from recliner to bed using slide board. Pt able to assist with pulling himself up in bed. Hayley care and coccyx care given. Continues to deny having any pain or needs. Cam boot on. Left lower leg elevated on pillow. Bed alarm set and call light with in reach of pt.
--- NOTE | 2018-08-24 06:06 | NUR ---
Q hourly checks done. Pt has been resting in bed with eyes closed and even respirations. Pt has been incontinent of urine x 2. Opens eyes when spoken too. Continues to deny pain.
[2018-08-24 06:29] VITALS: BP 147/93
--- NOTE | 2018-08-24 07:10 | NUR ---
Bedside shift report given to Lisa Royal RN
[2018-08-24 18:51] VITALS: BP 101/66
--- NOTE | 2018-08-24 19:40 | NUR ---
Report given to ADRYAN Mendoza. Patient sleeping in chair. No changes with cares today.
--- NOTE | 2018-08-24 22:00 | NUR ---
Cam boot loosened, pt wiggled toes without difficulty. Perpherial pulse present. Denies pain. Dressing to left out ankle CDI. Cam boot re-secured. Pt incontinent of stool. Hayley care and coccyx care given. Bed alarm set and call light with in reach of pt.
[2018-08-25 06:36] VITALS: BP 161/100
--- NOTE | 2018-08-25 07:20 | NUR ---
Bedside shift report given to Jolene Sandoval RN
[2018-08-25 18:00] VITALS: BP 98/67
--- NOTE | 2018-08-25 18:49 | NUR ---
Pt here for rehab after lt ankle fracture. Pt is able to make needs known to staff. Calls for help when needed. Pt non weight bearing on left leg. Family in through out the day. Pain medication given for right lower leg pain at 0950.
--- NOTE | 2018-08-25 19:15 | NUR ---
Bedside shift report received from Jolene Sandoval RN. Pt resting recliner awake and a/o. Denies having any pain or needs. Cam boot on left lower leg and foot.
--- NOTE | 2018-08-25 22:00 | NUR ---
Resting in bed, bed alarm set and call light with in reach of pt. Opens eyes when spoken too. Denies having any pain or needs. Used urinal at bed side. Voided 175mls of dark color urine. Cam Boot loosen for approx 5 minutes. Then resecure. Dressing on left lateral ankle CDI.
--- NOTE | 2018-08-26 04:15 | NUR ---
Used urinal at bedside. Awake and a/o x 3. Denies having any pain. Bed alarm set and call light with in reach of pt. Q hourly checks done.
[2018-08-26 06:04] VITALS: BP 153/91
--- NOTE | 2018-08-26 07:10 | NUR ---
Bedside shift report given to Angella Arzola RN
[2018-08-26 18:23] VITALS: BP 94/60
--- NOTE | 2018-08-26 20:35 | NUR ---
Bedside shift report received from Angella CORNELIUS. Up in chair with legs elevated. CAM boot in place to LLE. Remains NWB to LLE with use of slide board for transfers. A/O x2 self and place. Unsure of date, year. Oriented to situation. Denies pain. Assessment completed. States he is "cold". His butt hurts and he is ready for bed. BUSINESS PRACTICES OFFICER's notified. Chair alarm on. Call light in reach.
[2018-08-27 06:32] VITALS: BP 134/86
--- NOTE | 2018-08-27 07:39 | NUR ---
Report to Saskia CORNELIUS.
[2018-08-27 19:00] VITALS: BP 108/67
--- NOTE | 2018-08-27 21:50 | NUR ---
Report received from Saskia CORNELIUS. Patient rests in bed with eyes closed. Bed alarm on. Call light in reach. Awakens easily to verbal stimuli for assessment and HS medication. Oriented to self, and place. Denies pain. CAM boot in place to LLE. Opened for incision inspection. Airstrip dressing CDI. Boot refastened. Assessment completed. Educated on new medication Aricept. Takes whole without difficulty. Denies wants or needs. Using urinal and call for staff to empty PRN.
--- NOTE | 2018-08-28 01:07 | NUR ---
Rests with eyes closed. No signs of pain or distress. Bed alarm on. Call light in reach.
--- NOTE | 2018-08-28 04:10 | NUR ---
Rests with eyes closed. CAM boot in place to LLE. No signs of pain or distress. Using urinal in bed.
[2018-08-28 06:31] VITALS: BP 156/89
--- NOTE | 2018-08-28 07:02 | NUR ---
Report to Saskia CORNELIUS.
--- NOTE | 2018-08-28 10:05 | NUR ---
Patient taken to outpatient clinic via wheelchair by family for follow up appointment with Dr. Lui. CAM boot to left lower extremity. CMS intact.
[2018-08-28 18:19] VITALS: BP 113/57
--- NOTE | 2018-08-28 19:00 | NUR ---
BEDSIDE SHIFT REPORT RECIEVED FROM ADRYAN MILLER. PATIENT SITTING UP IN CHAIR, CALL LIGHT WITHIN REACH AND CHAIR ALARM ON.
--- NOTE | 2018-08-28 21:34 | NUR ---
PATIENT RESTING IN BED. SHIFT ASSESSMENT COMPLETED AT THIS TIME. PATIENT A/O X4, DENIES PAIN. LUNGS CTA, DENIES COUGH OR SHORTNESS OF BREATH. +2 BLE PITTING EDEMA NOTED. CAM BOOT CDI TO LLE. MEPILEX TO SALAS CDI. HS MEDICATION GIVEN. PATIENT WITHOUT FURTHER NEEDS, WILL CONTINUE TO MONITOR. CALL LIGHT WITHIN REACH AND BED ALARM ON.
[2018-08-29 06:29] VITALS: BP 164/95
[2018-08-29 18:00] VITALS: BP 89/60
--- NOTE | 2018-08-29 18:54 | NUR ---
[facility] and pt and family would like to choose [facility] for care after discharge. Paperwork is sent w/ [facility] litigation claim representative as pt is accepted for care.
--- NOTE | 2018-08-29 19:11 | NUR ---
REPORT RECEIVED FROM ADRYAN MILLER. PATIENT ASLEEP IN RECLINER DURING REPORT. NO NEW ORDERS RECEIVED POST SURGICAL FOLLOW UP. WILL CONTINUE TO USE SLIDE BOARD AND NON-WEIGHT BEARING AND WEAR THE CAM BOOT.
--- NOTE | 2018-08-30 00:53 | NUR ---
Patient sleeping in bed with TV on. All alarms on and bed in lowest position with call light within reach.
--- NOTE | 2018-08-30 03:48 | NUR ---
Patient asleep in bed with HOB slightly elevated and all lights are off. Bed in lowest position.
[2018-08-30 06:28] VITALS: BP 155/91
--- NOTE | 2018-08-30 07:00 | NUR ---
REPORT RECEIVED FROM PATY CORNELIUS.
--- NOTE | 2018-08-30 07:27 | NUR ---
SUPINE IN BED WITH EYES CLOSED. AWAKENS EASILY TO VOICE. PLEASANT. COMPLIMENTARY. DENIES PAIN AT PRESENT. CAM BOOT IN PLACE TO LT FOOT. ORIENTED X4. AGREES TO SHOWER TODAY. CALL LIGHT IN REACH.
[2018-08-30 18:43] VITALS: BP 103/73
[2018-08-31 05:50] VITALS: BP 141/90
--- NOTE | 2018-08-31 06:55 | NUR ---
PT HERE FOR THERAPYS AFTER FX OF LEFT ANKLE. PT SLEEP ALL NIGHT WAKES WHEN HE IS TURNED. INCONTINET OF URINE. PT IS ABLE TO MAKE NEEDS KNOWN TO STAFF. PT NON WEIGHT BEARING ON LEFT LEG FOR THE NEXT 2 WEEKS. CONTINUE TO MONIOTR PT.
--- NOTE | 2018-08-31 07:10 | NUR ---
REPORT RECEIVED FROM ADRYAN ZHANG. PATIENT RESTING IN BED QUIETLY. GIVEN 0700 MEDS
--- NOTE | 2018-08-31 09:30 | NUR ---
PT FOUND SITTING UP IN CHAIR. TAKES SCHEDULED MEDS WITHOUT DIFFICULTY. CAM BOOT ON AT THIS TIME. DENIES ANY PAIN, FAMILY ARRIVES TO VISIT. CALL LIGHT IN REACH NO OTHER NEEDS NOTED.
[2018-08-31 18:46] VITALS: BP 108/67
--- NOTE | 2018-08-31 19:00 | NUR ---
BEDSIDE SHIFT REPORT RECIEVED FROM ADRYAN ELI. PATIENT SITTING UP IN CHAIR WATCHING TV, CALL LIGHT WITHIN REACH AND CHAIR ALARM ON.
--- NOTE | 2018-08-31 21:45 | NUR ---
PATIENT SITTING UP IN CHAIR WATCHING TV. SHIFT ASSESSMENT COMPLETED AT THIS TIME. PATIENT A/O X4, DENIES PAIN, BUT WOULD LIKE PRN TYLENOL TO "HELP SLEEP." LUNGS CTA, DENIES COUGH OR SHORTNESS OF BREATH. +1 PITTING EDEMA NOTED TO BLE. CAM BOOT CDI TO LLE WITH 1/2 AIRSTRIP AND MEPILEX CDI. PATIENT REMAINS NON WEIGHT BEARING TO LLE. HS MEDICATION GIVEN. PATIENT WITHOUT FURTHER NEEDS, WILL CONTINUE TO MONITOR. CALL LIGHT WITHIN REACH AND CHAIR ALARM ON.
--- NOTE | 2018-09-01 05:36 | NUR ---
Pt her for fall resulting in a left ankle fracture. Pt is able to make needs known. Pt was assisted to chair at begining of shift and moved self around in hallways. Pt pleasent and coppertive. PT offers no complaints of pain . Pt rest in bed through ouththe night, calls for assistance when needed. Continue to monitor.
[2018-09-01 06:33] VITALS: BP 151/98
--- NOTE | 2018-09-01 07:13 | NUR ---
BEDSIDE REPORT GIVEN TO Danny FULLER RN
--- NOTE | 2018-09-01 07:47 | NUR ---
AWAKE IN BED. CAM BOOT IN PLACE TO LLE. HE REPORTS DISCOMFORT TO HIS LT FOOT, WHICH HE CALLS HIS "HEAVY FOOT." RATES 8/10 AND FEELS TIGHT. CAM BOOT REMOVED AND ROM EXERCISES PERFORMED. ANALGESIC BALM APPLIED TO LE AND FOOT. MEPILEX TO LT SALAS REPLACED; IT IS COVERING A SCAB. INCISION TO LT FOOT OPEN TO AIR AND APPEARS WELL HEALED. PEDAL PULSES PALPABLE.
--- NOTE | 2018-09-01 08:40 | NUR ---
SITTING IN CHAIR FOR BREAKFAST. PAIN TO FOOT BETTER BY REPORT BUT STILL RATES 8/10.
[2018-09-01 18:51] VITALS: BP 121/74
--- NOTE | 2018-09-01 19:14 | NUR ---
REPORT PROVIDED TO ESVIN CORNELIUS.
--- NOTE | 2018-09-01 19:25 | NUR ---
Report received from Breana Ferreira RN
--- NOTE | 2018-09-01 19:51 | NUR ---
Resting sitting up in recliner, awake and a/o x 3. States he has mild pain. Rated pain 7 out 10. Reviewed pain scale with pt. Rated pain 3 out 10. Continues to wear cam boot. Chair alarm set and call light with in reach of pt. Pt given tylenol 650mg PO for pain per pt request.
--- NOTE | 2018-09-01 21:05 | NUR ---
Report given to Fatemeh Anguiano RN
--- NOTE | 2018-09-01 21:08 | NUR ---
PATIENT CONSUMES NIGHT MEDS WITH NO OBVIOUS DIFFICULTY. PATIENT IS RESTING QUIETLY IN BED. PATIENT DOES NOT APPEAR TO BE IN ANY OBVIOUS DISTRESS AT THIS TIME. PATIENT HAS NO COMPLAINTS. PATIENT'S POSITION CHANGED IN BED IF HE HAS NOT DONE SO INDEPENDENTLY IN TWO HOURS. HOB ELEVATED FOR COMFORT. BED RAILS UP X2. BED ALARM ARMED AT ALL TIMES. CALL LIGHT WITHIN REACH. CLOSE MONITORING AND HOURLY ROUNDING CONTINUE.
--- NOTE | 2018-09-02 01:44 | NUR ---
PATIENT CONTINUES TO REST QUIETLY IN BED. PATIENT CHANGES POSITION IN BED INDEPENDENTLY THROUGHOUT THE NIGHT. PATIENT DOES NOT APPEAR TO BE IN ANY OBVIOUS DISTRESS AT THIS TIME. HOB ELEVATED FOR COMFORT. BED RAILS UP X2. BED ALARM ARMED AT ALL TIMES. CALL LIGHT WITHIN REACH. CLOSE MONITORING AND HOURLY ROUNDING CONTINUE.
[2018-09-02 06:24] VITALS: BP 151/93
--- NOTE | 2018-09-02 06:50 | NUR ---
REPORT GIVEN TO ASHLEY Calles RN.
[2018-09-02 18:31] VITALS: BP 112/69
[2018-09-03 06:13] VITALS: BP 154/84
--- NOTE | 2018-09-03 07:00 | NUR ---
REPORT RECEIVED FROM NIRMALA CORNELIUS.
--- NOTE | 2018-09-03 07:15 | NUR ---
REPORT GIVEN TO MILADY-ADRYAN AND CARE TURNED OVER AT THIS TIME, PATIENT RESTING QUIETLY IN BED, DENIES ANY NEEDS/COMPLAINTS AT THIS TIME
--- NOTE | 2018-09-03 11:47 | NUR ---
IN HALLWAY WITH ; SHE PROPELS HIM IN W/C.
[2018-09-03 18:29] VITALS: BP 107/69
--- NOTE | 2018-09-03 19:40 | NUR ---
Report received from Breana CORNELIUS. Up in recliner with bilateral lower ext. elevated. CAM boot in place to LLE. A/O to self, , place. Did not know current Month or Year. Denies pain. Assessment completed. Scheduled HS medications taken whole without difficulty. Denies wants or needs. Chair alarm on. Call light in reach.
--- NOTE | 2018-09-03 19:47 | NUR ---
REPORT PROVIDED TO KARLA HUNT.
[2018-09-04 06:27] VITALS: BP 145/93
--- NOTE | 2018-09-04 07:08 | NUR ---
Report to Saskia CORNELIUS.
[2018-09-04 18:36] VITALS: BP 130/79
[2018-09-05 06:23] VITALS: BP 148/89
--- NOTE | 2018-09-05 06:40 | NUR ---
Pt here swing bed due to fracture of left ankle and strengthing. Pt is able to make needs known to staff. PT call whenasistance is needed. Tylenol was given proopir to HS. Pt uses urinal per self but is also incontinent of urine at times. Pt reports not sleeping well last night.
--- NOTE | 2018-09-05 16:30 | NUR ---
PT IN BED RESTING AND TALKING WITH FAMILY, SMILING AFFECT, DENIES PAIN, DENIES NEEDS, LAUGHING AND JOKING WITH STAFF, ABLE TO TAKE PILLS WHOLE WITH WATER WITH NO SIGNS OF DIFFICULTIES, APPEARS TO BE ALERT AND ORIENTED DURING THIS CONVERSATION, UPON EXITING ROOM PT IS IN BED, HOB ELEVATED, BED ALARM ON AND CALL LIGHT WITHIN REACH
[2018-09-05 18:19] VITALS: BP 112/74
[2018-09-06 06:25] VITALS: BP 163/89
[2018-09-06 18:43] VITALS: BP 111/70
--- NOTE | 2018-09-06 19:20 | NUR ---
REPORT RECEIVED FROM SREEDHAR Yeung RN.
--- NOTE | 2018-09-06 21:47 | NUR ---
PATIENT IN BED RESTING QUIETLY. HE DOES NOT APPEAR TO BE IN ANY OBVIOUS DISTRESS AT THIS TIME. PATIENT IS DROWSY AND ORIENTED X2 BUT DOES HAVE MILD CONFUSION, WHICH IS HIS BASELINE. PATIENT CONSUMES HIS MEDICATION WITH NO OBVIOUS DIFFICULTY AND REQUESTS PRN APAP IS HIS USUAL. PATIENT HAS NO OTHER COMPLAINTS OR REQUESTS. HOB ELEVATED FOR COMFORT AND ORTHOPNEA. BED RAILS UP X2. BED ALARM ARMED AT ALL TIMES. CALL LIGHT WITHIN REACH. CAM BOOT OPENED UP FOR A SHORT PERIOD OF TIME, AND THE LLE IS ALWAYS ELEVATED. CLOSE MONITORING AND HOURLY ROUNDING CONTINUE.
--- NOTE | 2018-09-07 04:24 | NUR ---
PATIENT CONTINUES TO REST QUIETLY IN BED. PATIENT DOES NOT APPEAR TO BE IN ANY OBVIOUS DISTRESS. PATIENT HAS CHANGED HIS POSITION IN BED INDEPENDENTLY THROUGHOUT THE NIGHT. PATIENT HAS HAD NO COMPLAINTS OR REQUESTS THROUGHOUT THE NIGHT. HOB ELEVATED FOR COMFORT. BED RAILS UP X2. BED ALARM ARMED AT ALL TIMES. CALL LIGHT WITHIN REACH. CLOSE MONITORING AND HOURLY ROUNDING CONTINUE.
--- NOTE | 2018-09-07 05:07 | NUR ---
MARINE FITTER STAFF CALL THIS RN TO ROOM TO ASSESS SITUATION. PATIENT HAS BEEN INCONTINENT OF STOOL AND HAS HAD HIS HANDS IN THE STOOL, SPREADING IT ALL OVER HIMSELF, HIS BED AND HIS CALL LIGHT. PATIENT WAS CLEAN AND SLEEPING QUIETLY UPON LAST HOURLY CHECKS. PATIENT IGNORES STAFF WHEN EDUCATION IS ATTEMPTED, REFUSING TO ANSWER. PATIENT IS PROVIDED BED BATH AND NEW BED LINENS ARE APPLIED. INCONTINENCE CARE PROVIDED AND PATIENT REFUSES EDUCATION.
[2018-09-07 06:31] VITALS: BP 146/94
--- NOTE | 2018-09-07 07:12 | NUR ---
REPORT GIVEN TO SREEDHAR CORNELIUS.
[2018-09-07 19:05] VITALS: BP 115/74
--- NOTE | 2018-09-07 19:23 | NUR ---
REPORT RECEIVED FROM SREEDHAR CORNELIUS.
--- NOTE | 2018-09-07 21:58 | NUR ---
Pt lying in bed, is easily awakened. Denies needs at this time. Loosened velcro straps to boot on L leg for comfort.
[2018-09-08 06:24] VITALS: BP 157/95
--- NOTE | 2018-09-08 07:20 | NUR ---
REPORT GIVEN TO ANUEL CORNELIUS.
--- NOTE | 2018-09-08 08:19 | NUR ---
Assessment complete. Patient resting in bed. Denies pain at this time. Bed in lowest position, bed alarm on and active. Call light and personal belongins within reach of patient. Wants/needs addressed at this time. Will cont to monitor.
--- NOTE | 2018-09-08 18:23 | NUR ---
Patient resting in chair. Family into visit with patient at this time. LLE remains free from weight bearing this entire shift. No c/o pain. Chair alarm on and active. Call light and personal belongings remain within reach of patient. Will cont to monitor.
[2018-09-08 19:00] VITALS: BP 102/61
--- NOTE | 2018-09-08 20:00 | NUR ---
Patient assessment completed at this time. Patient is alert and oriented to person and place. Patient is disoriented to situation and time. Pt states that it is October 2013. Pt is re-oriented to year and to the reason he is in the hospital. Pt denies pain at this time. Call light within reach.
--- NOTE | 2018-09-08 22:00 | NUR ---
Report given to ADRYAN Jay
--- NOTE | 2018-09-08 23:07 | NUR ---
Mepilex dressing to L gutierrez changed at this time. Scab is cleansed with first aid cleanser and dried. Scab appears to be puplish and starting to come off. Small mepilex replaced over scab. Sensation and pulses intact to distal LLE. CAM walker in place.
[2018-09-09 06:33] VITALS: BP 145/90
--- NOTE | 2018-09-09 07:10 | NUR ---
Bedside shift report given to Shelly-ADRYAN and care turned over at this time, patient resting quietly in bed with eyes closed, call light within reach, side rails up x 2, bed alarm on,
--- NOTE | 2018-09-09 09:35 | NUR ---
PT FOUND SITTING UP IN CHAIR AFTER EATING BREAKFAST. TAKES MEDS WITHOUT DIFFICULTY. CAM BOOT IN PLACE. DENIES ANY PAIN AT THIS TIME. NO OTHER NEEDS NOTED. WILL CONTINUE TO MONITOR.
[2018-09-09 19:00] VITALS: BP 100/66
[2018-09-10 06:40] VITALS: BP 165/108
--- NOTE | 2018-09-10 07:00 | NUR ---
REPORT RECEIVED FROM NIRMALA CORNELIUS.
--- NOTE | 2018-09-10 07:27 | NUR ---
SUPINE IN BED WITH EYES CLOSED. AWAKENS EASILY TO NAME. REPORTS RESTING WELL. CAM BOOT INTACT TO LLE AND IS REMOVED TO CHECK SKIN INTEGRITY. PATIENT DENIES PAIN. MEPILEX TO LT SALAS CHANGED; SCAB REMAINS INTACT WITH NORMAL APPEARING SURRONDING SKIN. THERE IS NO DRAINAGE TO SITE. PEDAL PULSES STRONG BILAT. ROM EXERCISES PERFORMED TO LLE. PATIENT IS NOT READY TO GET UP AT THIS TIME.
--- NOTE | 2018-09-10 08:24 | NUR ---
IN CHAIR WITH BREAKFAST TRAY IN FRONT OF HIM. BREAKFAST CONSISTS OF A SERVING OF SCRAMBLED EGGS, A PANCAKE AND A SAUSAGE URVASHI. PATIENT HAS SPREAD JELLY ON SAUSAGE URVASHI AND IS WITNESSED POURING MAPLE SYRUP OVER SAUSAGE URVASHI, NOT HITTING PANCAKE THAT IS NEXT TO SAUSAGE URVASHI. HE THEN TAKES THE BUTTER AND SPREADS IT ON TOP OF SAUSAGE URVASHI. CLARIFY WITH PATIENT THAT HE IS PUTTING ALL THAT ON HIS URVASHI AND NOT THE PANCAKE, HE STATES "I WANT ALL THE FLAVOR. JUST MIXING IT UP A BIT."
--- NOTE | 2018-09-10 11:01 | NUR ---
IN W/C PROPELLED BY THROUGH HALLWAY.
[2018-09-10 12:23] VITALS: BP 92/55
[2018-09-10 18:37] VITALS: BP 106/70
--- NOTE | 2018-09-10 19:30 | NUR ---
REPORT RECEIVED FROM JAC Yeung RN.
--- NOTE | 2018-09-10 22:10 | NUR ---
PATIENT ASSISTED INTO BED AFTER RESTING IN THE RECLINER THIS EVENING. PATIENT DOES NOT APPEAR TO BE IN ANY OBVIOUS DISTRESS. PATIENT HAS NO COMPLAINTS. PATIENT IS ALERT, BUT CONFUSED WHICH IS HIS BASELINE. PATIENT HAS NO COMPLAINTS OR REQUESTS AND JOKES AROUND WITH STAFF. HOB ELEVATED FOR COMFORT. BED RAILS UP X2. BED ALARM ARMED. CALL LIGHT WITHIN REACH. PATIENT DOES NOT DISPLAY ANY NONVERBAL PAIN CUES. CLOSE MONITORING AND HOURLY ROUNDING CONITNUE.
--- NOTE | 2018-09-10 23:04 | NUR ---
BLOOD PRESSURE STILL HIGH, SO SECOND DOSE OF CLONIDINE GIVEN. PATIENT INDICATES UNDERSTANDING.
[2018-09-11 05:58] VITALS: BP 148/75
--- NOTE | 2018-09-11 06:59 | NUR ---
REPORT GIVEN TO MILADY Tatum RN.
--- NOTE | 2018-09-11 08:16 | NUR ---
PATIENT SITTING IN CHAIR NOTED TO HAVE TUBE OF DENTURE ADHESIVE IN RT HAND AND A HANDFUL OF KLEENEX IN THE LT HAND. HE IS RELUCTANT TO HAND OVER THE ADHESIVE, BUT DOES COMPLY. PATIENT DOES SHOW BOTTOM DENTURES TO THIS NURSE AND LARGE AMOUNT OF ADHESIVE NOTED. PATIENT PLACES THEM BACK IN MOUTH INDEPENDENTLY AND REPORTS A GOOD FIT; EVEN BITING DOWN LOUDLY TO SHOW PROOF. BREAKFAST TRAY DELIVERED AND ASSIST WITH SET UP. SPEECH CLEAR.
--- NOTE | 2018-09-11 15:09 | NUR ---
WALKING IN HALLWAY WITH PT. GAIT STEADY USING WALKER.
[2018-09-11 18:35] VITALS: BP 120/76
--- NOTE | 2018-09-11 20:00 | NUR ---
REPORT PROVIDED TO JORDY CORNELIUS.
--- NOTE | 2018-09-11 20:26 | NUR ---
Resting in recliner awake and a/o x 3. C/o's of left ankle pain with movement and touch. Rates pain 8 out 10. Denies pain without movement. [place] 0.5mg PO given. Chair alarm set and call light with in reach of pt. Continues to wear cam boot.
--- NOTE | 2018-09-12 01:20 | NUR ---
Report given to Kelsy Gutierrez RN.
[2018-09-12 06:10] VITALS: BP 170/92
[2018-09-12 18:50] VITALS: BP 121/75
--- NOTE | 2018-09-12 20:55 | NUR ---
2049 Q hourly checks done. Chair alarm has been set and call light with in reach. Pt has been resting in chair eyes closed on and off. 2029 ambulated to bathroom, pt had BM. Assisted with own oral and HS. C/o of pain, unable to rate pain other than saying "it's note bad." [place] 2.5mg PO given. Continues to wear cam boot. Use walker and gait belt with ambulation. 2054 Ambulated to bed, using walker gait belt and transit bus driver socks on. Bed alarm set and call light with in reach of pt.
--- NOTE | 2018-09-13 01:30 | NUR ---
Q hourly checks done, bed alarm set and call light with in reach of pt. Continues to wear cam boot to left lower leg and foot.
[2018-09-13 06:28] VITALS: BP 150/89
--- NOTE | 2018-09-13 07:18 | NUR ---
Bedside shift report given to Jaida De La Cruz RN
[2018-09-13 18:11] VITALS: BP 104/72
[2018-09-14 06:23] VITALS: BP 150/89
--- NOTE | 2018-09-14 07:04 | NUR ---
Received report from ADRYAN Jay. Patient resting in room; plan to leave on Sunday and will need to sign paperwork today. Patient agrees and will go over the paperwork later today when family is in. No questions or concerns at this time.
--- NOTE | 2018-09-14 11:24 | NUR ---
PATIENT WITH FAMILY VISITING; PUSHING PATIENT IN WHEELCHAIR OUT OF ROOM TO THE CLINIC WAITING ROOM AND AROUND THE HOSPITAL. PATIENT REPORTS HE FEELS GOOD, NO PAIN.
--- NOTE | 2018-09-14 12:00 | NUR ---
PATIENT'S INQUIRING IF THEY CAN GO HOME. SHE AND PATIENT EXPRESS THEY WANT TO GO HOME AND UNDERSTAND PLAN IS FOR SUNDAY BUT SHE HAS CONCERNS OF PAYING FOR 2 MORE DAYS AND THE TIME/TRAVEL BACK AND FORTH THAT SHE IS DOING. I WILL NOTIFY DR. HASSAN AND ASK ABOUT DISCHARGE PLAN SINCE THIS NURSE IS NOT SURE WHAT THE PLAN WAS FOR ON SUNDAY. IS CALM AND COOPERATIVE JUST CONCERNED. PATIENT HAS BEEN PAIN FREE ALL MORNING, DRESSED AND EATING WELL FOR MEALS, IS TOTAL WEIGHT BEARING WITH CAM BOOT IN PLACE.
--- NOTE | 2018-09-14 16:03 | NUR ---
PATIENT CONTINUES TO REST IN ROOM AND VISIT WITH FAMILY. NO CONCERNS OR NEEDS AT THIS TIME. DR. HASSAN UPDATED STATUS ON DISCHARGE FOR SUNDAY AFTER PT/OT HAVE ONE LAST VISIT WITH PATIENT BEFORE SENDING HIM HOME.
[2018-09-14 18:26] VITALS: BP 115/80
--- NOTE | 2018-09-14 19:30 | NUR ---
Report received from Nae CORNELIUS. Patient resting supine in bed with eyes closed. Awakens easily to verbal stimuli. Denies pain. CAM boot in place to LLE. Mepilex dressing CDI to scabbed area on LLL. Assessment completed. Denies wants or needs. Bed alarm on. Call light in reach.
--- NOTE | 2018-09-14 23:58 | NUR ---
Rests quietly with eyes closed. No signs of pain or distress. Bed alarm on. Call light in reach.
--- NOTE | 2018-09-15 05:47 | NUR ---
Rested well all shift. AM medication taken without difficulty. Denies pain or needs.
[2018-09-15 06:20] VITALS: BP 151/98
--- NOTE | 2018-09-15 07:16 | NUR ---
Report to Saskia CORNELIUS.
--- NOTE | 2018-09-15 09:21 | NUR ---
PATIENT IS RESTING COMFORTABLY IN ROOM AND DENIES ANY PAIN OR NEEDS. PATIENT REPORTS HE IS GOING HOME TOMORROW AND READY. PATIENT REPORTS HE WOULD LIKE TO SLEEP IN CHAIR FOR A LITTLE WHILE. PATIENT IS CALM AND COOPERATIVE.
[2018-09-15 18:14] VITALS: BP 118/78
--- NOTE | 2018-09-15 20:06 | NUR ---
Report received from Saskia CORNELIUS. Patient up in recliner. A/O x4. Denies pain. CAM boot in place to LLE. Assessment completed. Ambulated to nurses station and back with STEREO EQUIPMENT REPAIRER. Walker and gait belt.
--- NOTE | 2018-09-16 06:12 | NUR ---
Rested well all night. Incontinent of urine. Linen change and pericares provided by [employer]ENTR[employer] DRIER OPERATOR. Takes AM medication without difficulty. Denies pain. CAM boot in place to LLE. Ambulated in guzman to nurses station and back last night before bed.
[2018-09-16 06:38] VITALS: BP 158/84
--- NOTE | 2018-09-16 07:25 | NUR ---
Report to Saskia CORNELIUS.
[2018-09-16] MEDS ORDERED: FLOMAX0.4 MG PO (13:45)
[2018-09-16] MEDS ORDERED: COZAAR 50MG50 MG/TAB PO (13:47)
[2018-09-16] MEDS ORDERED: ACETAMINOPHEN-H1 TA2 PO (13:48)
[2018-09-16 14:27] VITALS: BP 139/87
--- NOTE | 2018-09-16 14:34 | NUR ---
Pt is anxious to return to his home. He and family are notified that [facility] will not be admitting until 09-18-18 and they approve of this plan. [facility] is faxed all pertinent info and F2F order.
--- NOTE | 2018-09-16 15:00 | NUR ---
Patient alert and oriented. Denies pain. Denies dizziness or shortness of breath. Incision to left ankle is well approximated with no redness, drainage, or edema. CMS intact. CAM boot to left lower extremity. AMANDA hose to right lower extremity. Patient discharged to home with family. Patient's and son are at bedside. Written and verbal discharge instructions provided. Instructed patient and family to call and schedule follow up appointments with Dr. Mcknight and Dr. Lui. Phone numbers provided. Unable to schedule appointments for patient due to clinics closing for the holiday. Patient and family verbalize understanding and deny questions or needs at this time. Out of facility via wheelchair to POV. Transfers into POV without incident. Steady gait noted.
== END 2018-09-16 15:00 | disposition home health service (06) | DRG 561 ==
LOC: MED/SURG 11:42
PROVIDERS: Family Medicine; Nurse Practitioner; Nurse Practitioner Family; ADMIT Nurse Practitioner Primary Care
DX: S82.62XD Displaced fracture of lateral malleolus of left fibula, subsequent encounter for closed fracture with routine healing (principal); W18.30XD Fall on same level, unspecified, subsequent encounter; S93.02XD Subluxation of left ankle joint, subsequent encounter; I10 Essential (primary) hypertension; I25.10 Atherosclerotic heart disease of native coronary artery without angina pectoris; I48.91 Unspecified atrial fibrillation; Z95.5 Presence of coronary angioplasty implant and graft; Z79.01 Long term (current) use of anticoagulants; M79.18 Myalgia, other site; R33.9 Retention of urine, unspecified; K21.0 Gastro-esophageal reflux disease with esophagitis; K22.8 Other specified diseases of esophagus; F03.90 Unspecified dementia, unspecified severity, without behavioral disturbance, psychotic disturbance, mood disturbance, and anxiety
CPT/HCPCS: C9113; J2704; J7030; J7050; J7120; L4386

== ENCOUNTER 2018-08-13 17:15 | Day surgery (SDC) | payer MEDICARE, BC ==
[2018-08-14 09:20] VITALS: BP 118/70
== END 2018-08-13 18:40 | disposition swing bed (61) ==
LOC: MSO 17:15
DX: K21.0 Gastro-esophageal reflux disease with esophagitis (principal); K92.0 Hematemesis; Z79.899 Other long term (current) drug therapy; Z79.01 Long term (current) use of anticoagulants; I10 Essential (primary) hypertension; I48.91 Unspecified atrial fibrillation; Z95.5 Presence of coronary angioplasty implant and graft; K21.9 Gastro-esophageal reflux disease without esophagitis

== ENCOUNTER → 2018-10-07 | Outpatient (CLI) | payer MEDICARE, BC ==
[2018-09-16 14:27] VITALS: BP 139/87
[~2018-10-07] MED LIST changes: +ACETAMINOPHEN-H1 TA2 PO; +COZAAR 50MG50 MG/TAB PO; +FLOMAX0.4 MG PO
== END ==
LOC: RAD 11:22
DX: G31.9 Degenerative disease of nervous system, unspecified (principal); R42 Dizziness and giddiness
CPT/HCPCS: A9585

== ENCOUNTER → 2018-10-09 | Outpatient (CLI) | payer MEDICARE, BC ==
[2018-09-16 14:27] VITALS: BP 139/87
== END ==
LOC: RAD 08:29
DX: S82.832D Other fracture of upper and lower end of left fibula, subsequent encounter for closed fracture with routine healing (principal); Z96.7 Presence of other bone and tendon implants; Z98.890 Other specified postprocedural states

== ENCOUNTER → 2018-11-13 | Outpatient (CLI) | payer MEDICARE, BC | LOC: RAD 08:32 | DX: S82.892D Other fracture of left lower leg, subsequent encounter for closed fracture with routine healing (principal); Z96.7 Presence of other bone and tendon implants ==

== ENCOUNTER 2018-11-21 13:30 | Outpatient (RCR) | payer MEDICARE, BC | END 2018-11-21 14:00 | disposition home or self-care (01) | LOC: PT 13:30 | DX: S82.892D Other fracture of left lower leg, subsequent encounter for closed fracture with routine healing (principal); Z96.7 Presence of other bone and tendon implants | CPT/HCPCS: G8978-GP; G8979-GP ==

== ENCOUNTER → 2019-01-22 | Outpatient (CLI) | payer MEDICARE, BC | LOC: RAD 08:00 | DX: M19.072 Primary osteoarthritis, left ankle and foot (principal); Z98.890 Other specified postprocedural states ==

== ENCOUNTER → 2019-04-02 | Outpatient (CLI) | payer MEDICARE, BC ==
[2019-04-02 11:38] LABS: HEMATOCRIT 43.3 % (42.0-52.0); HEMOGLOBIN 13.4 g/dL (13.5-18.0); MEAN CELL VOLUME 92 fl (78-100); MEAN CORPUSCULAR HEMOGLOBIN 28 pg (27-31); MEAN CORPUSCULAR HGB CONC 31 g/dL (33-37); MEAN PLATELET VOLUME 9.9 fl (7.4-10.4); PLATELET COUNT 272 K/mm3 (130-400); RED BLOOD COUNT 4.73 M/mm3 (4.20-5.60); RED CELL DISTRIBUTION WIDTH 16.8 % (11.5-14.5); WHITE BLOOD COUNT 12.2 K/mm3 (4.8-10.8)
[2019-04-02 12:23] LABS: LYMPHOCYTE 16 % (20-51); MONOCYTE 8 % (3-10); NEUTROPHILS 76 % (42-75)
== END ==
LOC: LAB 11:04
PROVIDERS: Family Medicine
DX: R42 Dizziness and giddiness (principal)

== ENCOUNTER 2019-05-29 17:31 | Emergency (ER) | payer MEDICARE, BC ==
[2019-05-29] MEDS ORDERED: ASPIRIN E.C. 8181 MG PO (17:48)
[2019-05-29] MEDS ORDERED: FUROSEMIDE20 MG PO (17:48)
[2019-05-29] MEDS ORDERED: GOOD NEIGHBOR M25 M1 PO (17:50)
[2019-05-29] MEDS ORDERED: LOSARTAN POTASS50 M1 PO (17:51)
[2019-05-29] MEDS ORDERED: AMIODARONE200 MG PO (17:51)
[2019-05-29] MEDS ORDERED: PREDNISONE10 MG (18:22)
[2019-05-29 18:23] LABS: HEMATOCRIT 41.4 % (42.0-52.0); HEMOGLOBIN 13.2 g/dL (13.5-18.0); MEAN CELL VOLUME 93 fl (78-100); MEAN CORPUSCULAR HEMOGLOBIN 30 pg (27-31); MEAN CORPUSCULAR HGB CONC 32 g/dL (33-37); MEAN PLATELET VOLUME 9.8 fl (7.4-10.4); PLATELET COUNT 223 K/mm3 (130-400); RED BLOOD COUNT 4.46 M/mm3 (4.20-5.60); RED CELL DISTRIBUTION WIDTH 16.3 % (11.5-14.5); WHITE BLOOD COUNT 9.4 K/mm3 (4.8-10.8)
[2019-05-29 18:30] LABS: ALBUMIN 3.6 g/dL (3.4-4.8); POTASSIUM 3.2 mmol/L (3.5-5.1); SODIUM 140 mmol/L (136-145)
[2019-05-29 18:32] LABS: GLUCOSE 151 mg/dL (75-110); TOTAL PROTEIN 6.5 g/dL (6.2-8.1)
[2019-05-29 18:34] LABS: CARBON DIOXIDE 23 mmol/L (23-31); TOTAL BILIRUBIN 0.6 mg/dL (0.2-1.2)
[2019-05-29 18:38] LABS: AST-SGOT 14 U/L (5-34)
[2019-05-29 18:39] LABS: ALT/SGPT 14 U/L (0-55)
[2019-05-29 18:42] LABS: PROTHROMBIN TIME 10.5 SECONDS (9.0-12.0)
[2019-05-29 18:46] LABS: NEUTROPHILS 68 % (42-75)
[2019-05-29 18:47] LABS: LYMPHOCYTE 19 % (20-51); MONOCYTE 13 % (3-10)
[2019-05-29 18:48] LABS: TROPONIN-I < 0.03 ng/mL (<0.030)
[2019-05-29 19:59] LABS: URINE APPEARANCE CLEAR; URINE BILIRUBIN NEGATIVE (NEGATIVE); URINE BLOOD NEGATIVE (NEGATIVE); URINE COLOR LIGHT YELLOW; URINE GLUCOSE NEGATIVE (NEGATIVE); URINE KETONE NEGATIVE (NEGATIVE); URINE LEUKOCYTE ESTERASE NEGATIVE (NEGATIVE); URINE NITRATE NEGATIVE (NEGATIVE); URINE PROTEIN(semi-quant) TRACE mg/dL (NEGATIVE); URINE UROBILINOGEN NORMAL (NORMAL); URINE WBC 0-1 /hpf (0-3)
[2019-05-29 21:32] LABS: D-DIMER 0.85 mg/L FEU (0.15-0.50)
[2019-05-29 22:08] VITALS: BP 162/105
== END 2019-05-29 22:08 | disposition short-term general hospital (02) ==
LOC: ED 17:31
PROVIDERS: Nurse Practitioner Family
DX: I48.91 Unspecified atrial fibrillation (principal); I11.0 Hypertensive heart disease with heart failure; I50.9 Heart failure, unspecified; E87.6 Hypokalemia; R74.0 Nonspecific elevation of levels of transaminase and lactic acid dehydrogenase [LDH]; I73.9 Peripheral vascular disease, unspecified; E03.9 Hypothyroidism, unspecified; G47.33 Obstructive sleep apnea (adult) (pediatric); Z98.890 Other specified postprocedural states; Z79.01 Long term (current) use of anticoagulants; Z79.82 Long term (current) use of aspirin
CPT/HCPCS: J0696; J7030

== ENCOUNTER → 2019-08-06 | Outpatient (CLI) | payer MEDICARE, BC ==
[~2019-08-06] MED LIST changes: +FUROSEMIDE20 MG PO; +GOOD NEIGHBOR M25 M1 PO; +LOSARTAN POTASS50 M1 PO; +PREDNISONE10 MG
[2019-08-06 11:02] LABS: HEMATOCRIT 41.9 % (42.0-52.0); MEAN PLATELET VOLUME 9.4 fl (7.4-10.4); RED BLOOD COUNT 4.26 M/mm3 (4.20-5.60); WHITE BLOOD COUNT 10.5 K/mm3 (4.8-10.8)
[2019-08-06 11:11] LABS: POTASSIUM 3.7 mmol/L (3.5-5.1)
[2019-08-06 11:12] LABS: CALCIUM 9.1 mg/dL (8.3-10.5)
== END ==
LOC: LAB 10:51
PROVIDERS: Internal Medicine Interventional Cardiology
DX: I48.91 Unspecified atrial fibrillation (principal); R60.0 Localized edema

== ENCOUNTER → 2022-05-05 | Outpatient (CLI) | payer MEDICARE | LOC: LAB 12:23 | DX: I50.32 Chronic diastolic (congestive) heart failure (principal) ==

== ENCOUNTER 2022-11-13 12:45 | Observation (INO) | payer MEDICARE, MEDICAID ==
[~2022-11-13] VITALS: Ht 182.9 cm; Wt 89.4 kg
[~2022-11-13 12:45] MED LIST changes: +ENTRESTO 24 MG1 EACH PO; +JANTOVEN2 MG PO; +JARDIANCE10 MG PO; +MACROBID 100 M100 MG PO
[2022-11-13] MEDS ORDERED: ALDACTONE25 M1 PO (15:05)
[2022-11-13 17:35] VITALS: BP 105/76
[2022-11-13 21:31] VITALS: BP 156/96
[2022-11-14 06:01] VITALS: BP 118/85
[2022-11-14 10:52] VITALS: BP 87/47
[2022-11-14 18:02] VITALS: BP 116/87
[2022-11-15 06:18] VITALS: BP 129/90
[2022-11-15] MEDS ORDERED: ASPIRIN E.C. 8181 MG PO (08:03)
[2022-11-15] MEDS ORDERED: ALDACTONE 25MG25 MG PO (08:03)
[2022-11-15] MEDS ORDERED: FUROSEMIDE20 MG PO (08:03)
[2022-11-15] MEDS ORDERED: JANTOVEN2 MG PO (08:03)
[2022-11-15] MEDS ORDERED: JARDIANCE10 MG PO (08:03)
[2022-11-15] MEDS ORDERED: ENTRESTO 24 MG1 EACH PO (08:03)
[2022-11-15 09:45] VITALS: BP 122/79
== END 2022-11-15 10:15 | disposition hospice, home (50) ==
LOC: ED 12:45 → MED/SURG 16:06
PROVIDERS: ADMIT Nurse Practitioner
DX: I50.9 Heart failure, unspecified (principal); C90.00 Multiple myeloma not having achieved remission; F03.C0 Unspecified dementia, severe, without behavioral disturbance, psychotic disturbance, mood disturbance, and anxiety; R09.02 Hypoxemia; Z66 Do not resuscitate; I95.9 Hypotension, unspecified; R62.7 Adult failure to thrive; Z20.822 Contact with and (suspected) exposure to COVID-19; Z68.26 Body mass index [BMI] 26.0-26.9, adult
CPT/HCPCS: A9270; G0378